=== PATIENT | female | born 1970 | race Caucasian/White ===

== ENCOUNTER 2017-11-17 08:44 | Inpatient (IN) | payer MEDICAID ==
[2017-11-17] MEDS: HYDROmorphONE 1 MG/ML SYG IV ×5 (09:49→21:41)
[2017-11-17] MEDS: ONDANSETRON 4 MG INJ IV ×2 (09:49→12:13)
[2017-11-17 10:00] LABS: ADD MAN DIFF? NO
[2017-11-17 10:04] LABS: BASOPHILS % 0.2 % (0.0-2.0); HEMATOCRIT 40.6 % (37.0-47.0); HEMOGLOBIN 13.9 g/dl (12.0-16.0); LYMPHOCYTES # 0.6 10^3/ul (0.8-2.9); LYMPHOCYTES % 9.6 % (15.0-51.0); MEAN CORPUSCULAR HEMOGLOBIN 30.2 pg (29.0-33.0); MEAN CORPUSCULAR HGB CONC 34.2 g/dl (32.0-37.0); MEAN CORPUSCULAR VOLUME 88.3 fl (82.0-101.0); MEAN PLATELET VOLUME 10.1 fl (7.4-10.4); MONOCYTE # 0.3 10^3/ul (0.3-0.9); MONOCYTES % 4.2 % (0.0-11.0); NEUTROPHIL # 5.3 10^3/ul (1.6-7.5); NEUTROPHILS % 85.2 % (39.0-77.0); PLATELET COUNT 172 10^3/UL (140-415); RED CELL DISTRIBUTION WIDTH 14.6 % (11.5-14.5)
[2017-11-17 10:04] LABS: WHITE BLOOD COUNT 6.3 10^3/ul (4.8-10.8)
[2017-11-17 11:02] LABS: ALANINE AMINOTRANSFERASE 91 IU/L (13-69); ALBUMIN 3.9 g/dl (3.3-4.9); ALBUMIN/GLOBULIN RATIO 1.44; ALKALINE PHOSPHATASE 77 IU/L (42-121); ANION GAP 13 (8-16); ASPARTATE AMINO TRANSFERASE 40 IU/L (15-46); BILIRUBIN,INDIRECT 0.5 mg/dl (0-1.1); BILIRUBIN,TOTAL 0.5 mg/dl (0.2-1.3); BLOOD UREA NITROGEN 18 mg/dl (7-20); CALCIUM 8.1 mg/dl (8.4-10.2); CARBON DIOXIDE 22 mmol/L (21-31); CHLORIDE 104 mmol/L (97-110); GLUCOSE 99 mg/dl (70-220); POTASSIUM 3.6 mmol/L (3.5-5.1); SODIUM 135 mmol/L (135-144); TOTAL PROTEIN 6.6 g/dl (6.1-8.1)
[2017-11-17] MEDS ORDERED: ACETAMINOPHEN 325 MG TAB PO (11:30)
[2017-11-17] MEDS: morphine (ER) 15 MG TAB PO ×2 (16:30→20:42)
[2017-11-17 18:40] LABS: ADD MAN DIFF? NO
[2017-11-17 18:44] LABS: WHITE BLOOD COUNT 6.1 10^3/ul (4.8-10.8)
[2017-11-17 18:44] LABS: BASOPHILS % 0.5 % (0.0-2.0); EOSINOPHILS % 0.3 % (0.0-7.0); HEMATOCRIT 41.2 % (37.0-47.0); HEMOGLOBIN 14.1 g/dl (12.0-16.0); LYMPHOCYTES # 0.7 10^3/ul (0.8-2.9); LYMPHOCYTES % 11.1 % (15.0-51.0); MEAN CORPUSCULAR HEMOGLOBIN 30.1 pg (29.0-33.0); MEAN CORPUSCULAR HGB CONC 34.2 g/dl (32.0-37.0); MEAN PLATELET VOLUME 9.7 fl (7.4-10.4); MONOCYTE # 0.3 10^3/ul (0.3-0.9); MONOCYTES % 4.1 % (0.0-11.0); NEUTROPHILS % 83.2 % (39.0-77.0); PLATELET COUNT 172 10^3/UL (140-415); RED BLOOD COUNT 4.68 10^6/ul (4.20-5.40); RED CELL DISTRIBUTION WIDTH 14.6 % (11.5-14.5)
[2017-11-17 18:54] LABS: INR 1.03; PROTIME 13.6 Sec (11.9-14.9); PT RATIO 1.1
[2017-11-17 18:55] LABS: PARTIAL THROMBOPLASTIN TIME 27.3 Sec (25.0-35.0)
[2017-11-17] MEDS: FAMOTIDINE 20 MG TAB PO (20:42)
[2017-11-18] MEDS: HYDROmorphONE 1 MG/ML SYG IV ×6 (00:37→18:01)
[2017-11-18 05:12] LABS: ADD MAN DIFF? NO
[2017-11-18 05:17] LABS: BASOPHILS % 0.3 % (0.0-2.0); EOSINOPHILS % 0.2 % (0.0-7.0); HEMATOCRIT 41.1 % (37.0-47.0); HEMOGLOBIN 14.1 g/dl (12.0-16.0); LYMPHOCYTES # 0.9 10^3/ul (0.8-2.9); LYMPHOCYTES % 15.6 % (15.0-51.0); MEAN CORPUSCULAR HEMOGLOBIN 30.3 pg (29.0-33.0); MEAN CORPUSCULAR HGB CONC 34.3 g/dl (32.0-37.0); MEAN CORPUSCULAR VOLUME 88.4 fl (82.0-101.0); MEAN PLATELET VOLUME 9.5 fl (7.4-10.4); MONOCYTE # 0.3 10^3/ul (0.3-0.9); MONOCYTES % 5.7 % (0.0-11.0); NEUTROPHIL # 4.6 10^3/ul (1.6-7.5); NEUTROPHILS % 77.7 % (39.0-77.0); PLATELET COUNT 184 10^3/UL (140-415); RED BLOOD COUNT 4.65 10^6/ul (4.20-5.40); RED CELL DISTRIBUTION WIDTH 14.6 % (11.5-14.5)
[2017-11-18 06:01] LABS: ANION GAP 11 (8-16); BLOOD UREA NITROGEN 12 mg/dl (7-20); CARBON DIOXIDE 25 mmol/L (21-31); CHLORIDE 101 mmol/L (97-110); CREATININE 0.47 mg/dl (0.44-1.00); GLUCOSE 93 mg/dl (70-220); MAGNESIUM 2.2 mg/dl (1.7-2.5); POTASSIUM 4.1 mmol/L (3.5-5.1); SODIUM 133 mmol/L (135-144)
[2017-11-18] MEDS: FAMOTIDINE 20 MG TAB PO ×2 (08:28→20:21)
[2017-11-18] MEDS: DOCUSATE SODIUM 250 MG CAP PO (08:28)
[2017-11-18] MEDS: morphine (ER) 15 MG TAB PO (08:29)
[2017-11-18] MEDS: ENOXAPARIN 40 MG/0.4 ML SYG SC (11:02)
[2017-11-18] MEDS: morphine (ER) 30 MG TAB PO (20:21)
[2017-11-19] MEDS: HYDROmorphONE 1 MG/ML SYG IV (01:14)
[2017-11-19] MEDS: HYDROmorphONE 2 MG/ML SYG IV ×3 (05:07→20:04)
[2017-11-19 05:11] LABS: ADD MAN DIFF? NO
[2017-11-19 05:18] LABS: BASOPHILS % 0.4 % (0.0-2.0); EOSINOPHILS # 0.1 10^3/ul (0.0-0.5); EOSINOPHILS % 1.1 % (0.0-7.0); HEMATOCRIT 41.2 % (37.0-47.0); HEMOGLOBIN 14.2 g/dl (12.0-16.0); LYMPHOCYTES # 0.8 10^3/ul (0.8-2.9); LYMPHOCYTES % 18.6 % (15.0-51.0); MEAN CORPUSCULAR HEMOGLOBIN 30.4 pg (29.0-33.0); MEAN CORPUSCULAR HGB CONC 34.5 g/dl (32.0-37.0); MEAN CORPUSCULAR VOLUME 88.2 fl (82.0-101.0); MEAN PLATELET VOLUME 9.7 fl (7.4-10.4); MONOCYTE # 0.3 10^3/ul (0.3-0.9); MONOCYTES % 5.5 % (0.0-11.0); NEUTROPHIL # 3.3 10^3/ul (1.6-7.5); NEUTROPHILS % 73.5 % (39.0-77.0); PLATELET COUNT 172 10^3/UL (140-415); RED BLOOD COUNT 4.67 10^6/ul (4.20-5.40); RED CELL DISTRIBUTION WIDTH 14.6 % (11.5-14.5)
[2017-11-19 05:18] LABS: WHITE BLOOD COUNT 4.5 10^3/ul (4.8-10.8)
[2017-11-19 05:41] LABS: ANION GAP 10 (8-16); BLOOD UREA NITROGEN 13 mg/dl (7-20); CALCIUM 8.9 mg/dl (8.4-10.2); CARBON DIOXIDE 28 mmol/L (21-31); CHLORIDE 99 mmol/L (97-110); CREATININE 0.48 mg/dl (0.44-1.00); GLUCOSE 99 mg/dl (70-220); POTASSIUM 3.8 mmol/L (3.5-5.1); SODIUM 133 mmol/L (135-144)
[2017-11-19] MEDS: ENOXAPARIN 40 MG/0.4 ML SYG SC (08:01)
[2017-11-19] MEDS: FAMOTIDINE 20 MG TAB PO ×2 (08:41→20:05)
[2017-11-19] MEDS: DOCUSATE SODIUM 250 MG CAP PO (08:41)
[2017-11-19] MEDS: morphine (ER) 30 MG TAB PO ×2 (08:41→20:04)
[2017-11-19] MEDS: HYDROCORTISONE IVPB (09:30)
[2017-11-19] MEDS: METHOTREXATE IVPB (09:30)
[2017-11-19] MEDS: SOD CHLORIDE 0.9% IVPB (09:30)
[2017-11-19] MEDS: ONDANSETRON 4 MG INJ IV (12:06)
[2017-11-20] MEDS: HYDROmorphONE 2 MG/ML SYG IV ×2 (02:37→12:22)
[2017-11-20 05:29] LABS: ADD MAN DIFF? NO
[2017-11-20 05:37] LABS: WHITE BLOOD COUNT 6.1 10^3/ul (4.8-10.8)
[2017-11-20 05:37] LABS: BASOPHILS % 0.5 % (0.0-2.0); EOSINOPHILS % 0.5 % (0.0-7.0); HEMATOCRIT 44.9 % (37.0-47.0); HEMOGLOBIN 15.1 g/dl (12.0-16.0); LYMPHOCYTES # 0.6 10^3/ul (0.8-2.9); LYMPHOCYTES % 10.4 % (15.0-51.0); MEAN CORPUSCULAR HEMOGLOBIN 29.8 pg (29.0-33.0); MEAN CORPUSCULAR HGB CONC 33.6 g/dl (32.0-37.0); MEAN CORPUSCULAR VOLUME 88.7 fl (82.0-101.0); MEAN PLATELET VOLUME 9.7 fl (7.4-10.4); MONOCYTE # 0.4 10^3/ul (0.3-0.9); MONOCYTES % 5.9 % (0.0-11.0); NEUTROPHILS % 81.9 % (39.0-77.0); PLATELET COUNT 211 10^3/UL (140-415); RED BLOOD COUNT 5.06 10^6/ul (4.20-5.40); RED CELL DISTRIBUTION WIDTH 14.4 % (11.5-14.5)
[2017-11-20 05:53] LABS: ANION GAP 14 (8-16); BLOOD UREA NITROGEN 14 mg/dl (7-20); CALCIUM 9.1 mg/dl (8.4-10.2); CARBON DIOXIDE 27 mmol/L (21-31); CHLORIDE 96 mmol/L (97-110); CREATININE 0.42 mg/dl (0.44-1.00); GLUCOSE 109 mg/dl (70-220); SODIUM 133 mmol/L (135-144)
[2017-11-20] MEDS: FAMOTIDINE 20 MG TAB PO (09:20)
[2017-11-20] MEDS: DOCUSATE SODIUM 250 MG CAP PO (09:20)
[2017-11-20] MEDS: morphine (ER) 30 MG TAB PO (09:21)
[2017-11-20] MEDS: ENOXAPARIN 40 MG/0.4 ML SYG SC (09:23)
== END 2017-11-20 17:20 | disposition home or self-care (01) | DRG 55 ==
LOC: MS1 11-18 16:10 → E/R 08:44 → MS1 11:22
PROC: 3E0R305 Introduction of Other Antineoplastic into Spinal Canal, Percutaneous Approach (ICD-10-PCS; principal; 2017-11-19)
DX: C79.49 Secondary malignant neoplasm of other parts of nervous system (principal); C79.51 Secondary malignant neoplasm of bone; C50.912 Malignant neoplasm of unspecified site of left female breast; G40.89 Other seizures; Z17.0 Estrogen receptor positive status [ER+]; H35.52 Pigmentary retinal dystrophy; R51 Headache
CPT/HCPCS: 70450; 80048; 80053; 83735; 85025; 85610; 85730; 96374; 96375; 96376; 99285-25

== ENCOUNTER 2017-11-29 22:45 | Inpatient (IN) | payer MEDICAID ==
[2017-11-30] MEDS: DIPHENHYDRAMINE 50 MG INJ IV (03:58)
[2017-11-30] MEDS: HYDROmorphONE 1 MG/ML SYG IV ×2 (03:58→06:18)
[2017-11-30] MEDS: PROCHLORPERAZINE 10 MG INJ IV (03:58)
[2017-11-30 04:10] LABS: ADD MAN DIFF? NO
[2017-11-30 04:14] LABS: ABNORMAL IP MESSAGE 1; BASOPHILS % 0.5 % (0.0-2.0); EOSINOPHILS # 0.4 10^3/ul (0.0-0.5); EOSINOPHILS % 8.9 % (0.0-7.0); HEMATOCRIT 40.8 % (37.0-47.0); HEMOGLOBIN 14.5 g/dl (12.0-16.0); LYMPHOCYTES # 0.5 10^3/ul (0.8-2.9); MEAN CORPUSCULAR HEMOGLOBIN 30.6 pg (29.0-33.0); MEAN CORPUSCULAR HGB CONC 35.5 g/dl (32.0-37.0); MEAN CORPUSCULAR VOLUME 86.1 fl (82.0-101.0); MEAN PLATELET VOLUME 8.9 fl (7.4-10.4); MONOCYTE # 0.3 10^3/ul (0.3-0.9); MONOCYTES % 6.7 % (0.0-11.0); NEUTROPHIL # 2.9 10^3/ul (1.6-7.5); NEUTROPHILS % 69.7 % (39.0-77.0); PLATELET COUNT 246 10^3/UL (140-415); RED BLOOD COUNT 4.74 10^6/ul (4.20-5.40); RED CELL DISTRIBUTION WIDTH 14.7 % (11.5-14.5)
[2017-11-30 04:14] LABS: WHITE BLOOD COUNT 4.2 10^3/ul (4.8-10.8)
[2017-11-30 04:25] LABS: POSITIVE DIFF @See below
[2017-11-30 04:33] LABS: ANION GAP 16 (8-16); BLOOD UREA NITROGEN 8 mg/dl (7-20); CALCIUM 9.3 mg/dl (8.4-10.2); CARBON DIOXIDE 25 mmol/L (21-31); CHLORIDE 97 mmol/L (97-110); CREATININE 0.42 mg/dl (0.44-1.00); GLUCOSE 115 mg/dl (70-220); POTASSIUM 3.8 mmol/L (3.5-5.1); SODIUM 134 mmol/L (135-144)
[2017-11-30] MEDS ORDERED: ACETAMINOPHEN 325 MG TAB PO ×2 (05:30→07:30)
[2017-11-30] MEDS ORDERED: ONDANSETRON 4 MG INJ IV (05:30)
[2017-11-30] MEDS ORDERED: LORAZEPAM 2 MG INJ (06:15)
[2017-11-30] MEDS: LORAZEPAM 2 MG INJ IV ×2 (06:22→20:21)
[2017-11-30] MEDS ORDERED: ALBUTEROL/IPRATROPIUM (NEB) 3 ML AMP HHN (07:30)
[2017-11-30] MEDS: SOD CHLORIDE 0.45% 1,000 ML IV ×2 (10:14→15:02)
[2017-11-30] MEDS: DOCUSATE SODIUM 250 MG CAP PO (10:36)
[2017-11-30] MEDS: DEXAMETHASONE 4 MG/ML 1 ML INJ IV ×3 (10:36→20:15)
[2017-11-30] MEDS: POLYETHYLENE GLYCOL 17 GM PACKET PO (10:37)
[2017-11-30] MEDS: morphine (ER) 30 MG TAB PO ×2 (10:38→20:23)
[2017-11-30] MEDS: FOSPHENYTOIN (PE) 1,000 MG in SOD CHLORIDE 0.9% 80 ML IVPB (12:17)
[2017-11-30] MEDS: SOD CHLORIDE 0.9% 1,000 ML IV (12:46)
[2017-11-30 13:46] LABS: LACTIC ACID 1.4 mmol/L (0.5-2.0)
[2017-11-30] MEDS: NACL 0.9% 3 ML SYG IV (20:18)
[2017-12-01] MEDS: HYDROmorphONE 0.5 MG/0.5 ML SYG IV ×3 (00:34→09:47)
[2017-12-01] MEDS: FOSPHENYTOIN (PE) 100 MG in SOD CHLORIDE 0.9% 50 ML IVPB ×3 (00:35→15:52)
[2017-12-01] MEDS: DEXAMETHASONE 4 MG/ML 1 ML INJ IV ×4 (02:36→18:30)
[2017-12-01 05:56] LABS: ADD MAN DIFF? NO
[2017-12-01 06:01] LABS: WHITE BLOOD COUNT 6.9 10^3/ul (4.8-10.8)
[2017-12-01 06:01] LABS: ABNORMAL IP MESSAGE 1; BASOPHILS % 0.1 % (0.0-2.0); HEMATOCRIT 39.9 % (37.0-47.0); HEMOGLOBIN 14.3 g/dl (12.0-16.0); LYMPHOCYTES # 0.5 10^3/ul (0.8-2.9); LYMPHOCYTES % 6.6 % (15.0-51.0); MEAN CORPUSCULAR HGB CONC 35.8 g/dl (32.0-37.0); MEAN CORPUSCULAR VOLUME 86.4 fl (82.0-101.0); MEAN PLATELET VOLUME 8.5 fl (7.4-10.4); MONOCYTE # 0.5 10^3/ul (0.3-0.9); MONOCYTES % 6.9 % (0.0-11.0); NEUTROPHIL # 5.9 10^3/ul (1.6-7.5); NEUTROPHILS % 85.4 % (39.0-77.0); PLATELET COUNT 257 10^3/UL (140-415); RED BLOOD COUNT 4.62 10^6/ul (4.20-5.40); RED CELL DISTRIBUTION WIDTH 14.5 % (11.5-14.5)
[2017-12-01 06:44] LABS: ALANINE AMINOTRANSFERASE 49 IU/L (13-69); ALBUMIN 4.2 g/dl (3.3-4.9); ALKALINE PHOSPHATASE 83 IU/L (42-121); ANION GAP 16 (8-16); ASPARTATE AMINO TRANSFERASE 31 IU/L (15-46); BILIRUBIN,INDIRECT 0.5 mg/dl (0-1.1); BILIRUBIN,TOTAL 0.5 mg/dl (0.2-1.3); BLOOD UREA NITROGEN 8 mg/dl (7-20); CALCIUM 8.6 mg/dl (8.4-10.2); CARBON DIOXIDE 21 mmol/L (21-31); CHLORIDE 98 mmol/L (97-110); CREATININE 0.37 mg/dl (0.44-1.00); GLUCOSE 115 mg/dl (70-220); MAGNESIUM 2.2 mg/dl (1.7-2.5); PHOSPHORUS 2.8 mg/dl (2.5-4.9); POTASSIUM 3.6 mmol/L (3.5-5.1); SODIUM 131 mmol/L (135-144); TOTAL PROTEIN 7.2 g/dl (6.1-8.1)
[2017-12-01 07:08] LABS: POSITIVE DIFF @See below
[2017-12-01] MEDS: POLYETHYLENE GLYCOL 17 GM PACKET PO (09:16)
[2017-12-01] MEDS: morphine (ER) 30 MG TAB PO ×2 (09:16→13:04)
[2017-12-01] MEDS: DOCUSATE SODIUM 250 MG CAP PO (09:16)
[2017-12-01] MEDS: SOD CHLORIDE 0.45% 1,000 ML IV (11:51)
[2017-12-01] MEDS ORDERED: morphine (ER) 15 MG TAB PO (12:30)
[2017-12-01] MEDS: morphine (ER) 15 MG TAB PO (20:29)
[2017-12-01] MEDS ORDERED: morphine (ER) 30 MG TAB PO (21:00)
[2017-12-02] MEDS: FOSPHENYTOIN (PE) 100 MG in SOD CHLORIDE 0.9% 50 ML IVPB ×3 (00:17→16:54)
[2017-12-02] MEDS: DEXAMETHASONE 4 MG/ML 1 ML INJ IV ×4 (01:18→20:25)
[2017-12-02 06:11] LABS: ADD MAN DIFF? NO
[2017-12-02 06:18] LABS: ABNORMAL IP MESSAGE 1; BASOPHILS % 0.2 % (0.0-2.0); HEMATOCRIT 43.5 % (37.0-47.0); HEMOGLOBIN 15.2 g/dl (12.0-16.0); LYMPHOCYTES # 0.6 10^3/ul (0.8-2.9); LYMPHOCYTES % 9.7 % (15.0-51.0); MEAN CORPUSCULAR HEMOGLOBIN 30.3 pg (29.0-33.0); MEAN CORPUSCULAR HGB CONC 34.9 g/dl (32.0-37.0); MEAN CORPUSCULAR VOLUME 86.8 fl (82.0-101.0); MEAN PLATELET VOLUME 8.8 fl (7.4-10.4); MONOCYTE # 0.5 10^3/ul (0.3-0.9); NEUTROPHIL # 4.7 10^3/ul (1.6-7.5); NEUTROPHILS % 80.1 % (39.0-77.0); PLATELET COUNT 322 10^3/UL (140-415); RED BLOOD COUNT 5.01 10^6/ul (4.20-5.40); RED CELL DISTRIBUTION WIDTH 14.6 % (11.5-14.5)
[2017-12-02 06:18] LABS: WHITE BLOOD COUNT 5.8 10^3/ul (4.8-10.8)
[2017-12-02 06:23] LABS: POSITIVE DIFF @See below
[2017-12-02] MEDS: SOD CHLORIDE 0.45% 1,000 ML IV ×2 (06:44→21:00)
[2017-12-02 06:52] LABS: ALBUMIN 4.2 g/dl (3.3-4.9); ANION GAP 14 (8-16); BLOOD UREA NITROGEN 9 mg/dl (7-20); CALCIUM 8.8 mg/dl (8.4-10.2); CARBON DIOXIDE 24 mmol/L (21-31); CHLORIDE 101 mmol/L (97-110); CREATININE 0.45 mg/dl (0.44-1.00); GLUCOSE 81 mg/dl (70-220); MAGNESIUM 2.4 mg/dl (1.7-2.5); PHOSPHORUS 3.3 mg/dl (2.5-4.9); POTASSIUM 3.7 mmol/L (3.5-5.1); SODIUM 135 mmol/L (135-144)
[2017-12-02] MEDS: DOCUSATE SODIUM 250 MG CAP PO (09:54)
[2017-12-02] MEDS: POLYETHYLENE GLYCOL 17 GM PACKET PO (09:54)
[2017-12-02] MEDS: morphine (ER) 15 MG TAB PO ×2 (09:55→20:26)
[2017-12-02] MEDS: COLLAGENASE 30 GM TUBE TOP (12:30)
[2017-12-02] MEDS: LEVETIRACETAM 1000 MG (PMX) 100 ML IVPB ×2 (13:05→21:30)
[2017-12-03] MEDS: FOSPHENYTOIN (PE) 100 MG in SOD CHLORIDE 0.9% 50 ML IVPB ×2 (00:20→08:29)
[2017-12-03] MEDS: COLLAGENASE 30 GM TUBE TOP ×3 (00:24→08:37)
[2017-12-03] MEDS: DEXAMETHASONE 4 MG/ML 1 ML INJ IV ×4 (01:35→19:49)
[2017-12-03] MEDS: SOD CHLORIDE 0.45% 1,000 ML IV ×3 (03:42→23:04)
[2017-12-03 06:11] LABS: ADD MAN DIFF? NO
[2017-12-03 06:14] LABS: WHITE BLOOD COUNT 5.1 10^3/ul (4.8-10.8)
[2017-12-03 06:14] LABS: ABNORMAL IP MESSAGE 1; BASOPHILS % 0.2 % (0.0-2.0); HEMATOCRIT 42.3 % (37.0-47.0); HEMOGLOBIN 14.6 g/dl (12.0-16.0); LYMPHOCYTES # 0.5 10^3/ul (0.8-2.9); LYMPHOCYTES % 10.2 % (15.0-51.0); MEAN CORPUSCULAR HEMOGLOBIN 30.5 pg (29.0-33.0); MEAN CORPUSCULAR HGB CONC 34.5 g/dl (32.0-37.0); MEAN CORPUSCULAR VOLUME 88.3 fl (82.0-101.0); MEAN PLATELET VOLUME 8.4 fl (7.4-10.4); MONOCYTE # 0.5 10^3/ul (0.3-0.9); MONOCYTES % 9.3 % (0.0-11.0); NEUTROPHILS % 78.9 % (39.0-77.0); PLATELET COUNT 301 10^3/UL (140-415); RED BLOOD COUNT 4.79 10^6/ul (4.20-5.40); RED CELL DISTRIBUTION WIDTH 14.8 % (11.5-14.5)
[2017-12-03 06:26] LABS: POSITIVE DIFF @See below
[2017-12-03 06:36] LABS: ALBUMIN 3.9 g/dl (3.3-4.9); BLOOD UREA NITROGEN 11 mg/dl (7-20); CALCIUM 8.4 mg/dl (8.4-10.2); CARBON DIOXIDE 27 mmol/L (21-31); CHLORIDE 102 mmol/L (97-110); CREATININE 0.45 mg/dl (0.44-1.00); GLUCOSE 99 mg/dl (70-220); MAGNESIUM 2.3 mg/dl (1.7-2.5); PHOSPHORUS 3.1 mg/dl (2.5-4.9); SODIUM 136 mmol/L (135-144)
[2017-12-03 06:48] LABS: PHENYTOIN (DILANTIN) 14.9 ug/ml (10.0-20.0)
[2017-12-03 07:41] LABS: ANION GAP 11 (8-16)
[2017-12-03 07:43] LABS: POTASSIUM 3.7 mmol/L (3.5-5.1)
[2017-12-03] MEDS: DOCUSATE SODIUM 250 MG CAP PO (08:29)
[2017-12-03] MEDS: POLYETHYLENE GLYCOL 17 GM PACKET PO (08:29)
[2017-12-03] MEDS: morphine (ER) 15 MG TAB PO ×2 (08:33→20:16)
[2017-12-03] MEDS: LEVETIRACETAM 1000 MG (PMX) 100 ML IVPB (09:21)
[2017-12-03] MEDS: PHENYTOIN 100 MG CAP PO ×2 (13:04→20:16)
[2017-12-03] MEDS: HYDROCODONE/APAP (10/325) TAB PO (14:53)
[2017-12-03 15:31] LABS: PROTIME 13.3 Sec (11.9-14.9)
[2017-12-03 15:32] LABS: PARTIAL THROMBOPLASTIN TIME 27.6 Sec (25.0-35.0)
[2017-12-03] MEDS: ACET/BUTAL/CAFF TAB PO (18:04)
[2017-12-03] MEDS: LEVETIRACETAM 500 MG TAB PO (20:17)
[2017-12-03] MEDS: KETOROLAC 30 MG INJ IV (21:06)
[2017-12-03] MEDS: ONDANSETRON 4 MG INJ IV (21:58)
[2017-12-04] MEDS: DEXAMETHASONE 4 MG/ML 1 ML INJ IV ×4 (01:31→21:09)
[2017-12-04 06:25] LABS: ADD MAN DIFF? NO
[2017-12-04 06:34] LABS: ABNORMAL IP MESSAGE 1; BASOPHILS % 0.1 % (0.0-2.0); HEMATOCRIT 45.1 % (37.0-47.0); HEMOGLOBIN 15.9 g/dl (12.0-16.0); LYMPHOCYTES # 0.6 10^3/ul (0.8-2.9); LYMPHOCYTES % 6.3 % (15.0-51.0); MEAN CORPUSCULAR HEMOGLOBIN 30.3 pg (29.0-33.0); MEAN CORPUSCULAR HGB CONC 35.3 g/dl (32.0-37.0); MEAN CORPUSCULAR VOLUME 85.9 fl (82.0-101.0); MEAN PLATELET VOLUME 8.5 fl (7.4-10.4); MONOCYTE # 0.7 10^3/ul (0.3-0.9); MONOCYTES % 7.5 % (0.0-11.0); NEUTROPHILS % 84.9 % (39.0-77.0); PLATELET COUNT 343 10^3/UL (140-415); RED BLOOD COUNT 5.25 10^6/ul (4.20-5.40); RED CELL DISTRIBUTION WIDTH 14.6 % (11.5-14.5)
[2017-12-04 06:34] LABS: WHITE BLOOD COUNT 9.4 10^3/ul (4.8-10.8)
[2017-12-04 06:48] LABS: POSITIVE DIFF @See below
[2017-12-04 06:55] LABS: ALBUMIN 4.3 g/dl (3.3-4.9); ANION GAP 14 (8-16); BLOOD UREA NITROGEN 6 mg/dl (7-20); CALCIUM 8.8 mg/dl (8.4-10.2); CARBON DIOXIDE 26 mmol/L (21-31); CHLORIDE 90 mmol/L (97-110); CREATININE 0.36 mg/dl (0.44-1.00); GLUCOSE 116 mg/dl (70-220); MAGNESIUM 2.1 mg/dl (1.7-2.5); PHOSPHORUS 3.2 mg/dl (2.5-4.9); POTASSIUM 3.7 mmol/L (3.5-5.1); SODIUM 126 mmol/L (135-144)
[2017-12-04] MEDS: LEVETIRACETAM 500 MG TAB PO ×2 (08:54→21:53)
[2017-12-04] MEDS: PHENYTOIN 100 MG CAP PO ×3 (08:58→21:53)
[2017-12-04] MEDS: morphine (ER) 15 MG TAB PO ×2 (08:58→21:53)
[2017-12-04] MEDS: POLYETHYLENE GLYCOL 17 GM PACKET PO (08:59)
[2017-12-04] MEDS: DOCUSATE SODIUM 250 MG CAP PO (08:59)
[2017-12-04] MEDS ORDERED: SOD CHLORIDE 0.9% IVPB (11:00)
[2017-12-04] MEDS ORDERED: HYDROCORTISONE IVPB (11:00)
[2017-12-04] MEDS ORDERED: METHOTREXATE IVPB (11:00)
[2017-12-04] MEDS: SOD CHLORIDE 0.45% 1,000 ML IV ×2 (13:00→21:07)
[2017-12-04] MEDS: HYDROCODONE/APAP (10/325) TAB PO (13:55)
[2017-12-04] MEDS: HYDROmorphONE 0.5 MG/0.5 ML SYG IV (15:55)
[2017-12-04] MEDS: COLLAGENASE 30 GM TUBE TOP (18:30)
[2017-12-05] MEDS: DEXAMETHASONE 4 MG/ML 1 ML INJ IV ×4 (02:12→20:28)
[2017-12-05] MEDS: HYDROmorphONE 0.5 MG/0.5 ML SYG IV (04:59)
[2017-12-05 06:15] LABS: ALBUMIN 4.4 g/dl (3.3-4.9); ANION GAP 17 (8-16); BLOOD UREA NITROGEN 10 mg/dl (7-20); CALCIUM 8.8 mg/dl (8.4-10.2); CARBON DIOXIDE 23 mmol/L (21-31); CHLORIDE 88 mmol/L (97-110); CREATININE 0.35 mg/dl (0.44-1.00); GLUCOSE 124 mg/dl (70-220); MAGNESIUM 2.2 mg/dl (1.7-2.5); PHOSPHORUS 2.9 mg/dl (2.5-4.9); POTASSIUM 3.8 mmol/L (3.5-5.1); SODIUM 124 mmol/L (135-144)
[2017-12-05] MEDS: KETOROLAC 30 MG INJ IV (06:45)
[2017-12-05] MEDS: DOCUSATE SODIUM 250 MG CAP PO (09:00)
[2017-12-05] MEDS: POLYETHYLENE GLYCOL 17 GM PACKET PO (09:00)
[2017-12-05] MEDS: SOD CHLORIDE 0.45% 1,000 ML IV ×2 (09:00→17:38)
[2017-12-05] MEDS: morphine (ER) 15 MG TAB PO (09:05)
[2017-12-05] MEDS: PHENYTOIN 100 MG CAP PO ×2 (09:07→13:00)
[2017-12-05] MEDS: LEVETIRACETAM 500 MG TAB PO (09:07)
[2017-12-05] MEDS: NALOXONE (0.4 MG/ML) INJ IV (14:30)
[2017-12-05] MEDS: COLLAGENASE 30 GM TUBE TOP (15:00)
[2017-12-05] MEDS: LORAZEPAM 2 MG INJ IV (15:44)
[2017-12-05] MEDS: LEVETIRACETAM 1000 MG (PMX) 100 ML IVPB (20:28)
[2017-12-05] MEDS ORDERED: morphine (ER) 15 MG TAB PO (21:00)
[2017-12-05] MEDS: PHENYTOIN 100 MG INJ IV (22:24)
[2017-12-06] MEDS: DEXAMETHASONE 4 MG/ML 1 ML INJ IV ×4 (01:40→19:42)
[2017-12-06] MEDS: morphine 2 MG INJ IV ×3 (01:41→22:14)
[2017-12-06] MEDS: PHENYTOIN 100 MG INJ IV ×3 (05:35→21:49)
[2017-12-06 07:24] LABS: ALBUMIN 4.1 g/dl (3.3-4.9); ANION GAP 12 (8-16); BLOOD UREA NITROGEN 10 mg/dl (7-20); CALCIUM 8.3 mg/dl (8.4-10.2); CARBON DIOXIDE 25 mmol/L (21-31); CHLORIDE 88 mmol/L (97-110); GLUCOSE 121 mg/dl (70-220); MAGNESIUM 2.1 mg/dl (1.7-2.5); PHOSPHORUS 2.5 mg/dl (2.5-4.9); POTASSIUM 4.1 mmol/L (3.5-5.1); SODIUM 121 mmol/L (135-144)
[2017-12-06] MEDS: LEVETIRACETAM 1000 MG (PMX) 100 ML IVPB ×2 (08:24→20:47)
[2017-12-06] MEDS: DOCUSATE SODIUM 250 MG CAP PO (08:25)
[2017-12-06] MEDS: POLYETHYLENE GLYCOL 17 GM PACKET PO (08:25)
[2017-12-06] MEDS: COLLAGENASE 30 GM TUBE TOP (09:46)
[2017-12-06] MEDS: SOD CHLORIDE 0.9% 1,000 ML IV ×2 (11:02→23:11)
[2017-12-06] MEDS: ACET/BUTAL/CAFF TAB PO (12:22)
[2017-12-06 15:26] LABS: POTASSIUM,URINE RANDOM 22.2 mmol/L (25-125)
[2017-12-06 15:26] LABS: SODIUM,URINE RANDOM 112 mmol/L (30-90)
[2017-12-06 19:23] LABS: OSMOLALITY,URINE 488 mOsm/kg (250-1200)
[2017-12-06] MEDS: SOD CHLORIDE 0.9% 500 ML IV (22:11)
[2017-12-07] MEDS: DEXAMETHASONE 4 MG/ML 1 ML INJ IV ×4 (01:19→19:14)
[2017-12-07] MEDS: LORAZEPAM 2 MG INJ IV ×4 (02:00→20:14)
[2017-12-07] MEDS: SOD CHLORIDE 0.9% 1,000 ML IV ×2 (02:58→11:30)
[2017-12-07] MEDS: PHENYTOIN 100 MG INJ IV ×3 (05:53→21:57)
[2017-12-07] MEDS: morphine 2 MG INJ IV ×2 (05:54→16:08)
[2017-12-07 06:03] LABS: ANION GAP 13 (8-16)
[2017-12-07 06:12] LABS: ALBUMIN 4.1 g/dl (3.3-4.9); BLOOD UREA NITROGEN 7 mg/dl (7-20); CALCIUM 8.9 mg/dl (8.4-10.2); CARBON DIOXIDE 25 mmol/L (21-31); CHLORIDE 94 mmol/L (97-110); CREATININE 0.33 mg/dl (0.44-1.00); GLUCOSE 115 mg/dl (70-220); MAGNESIUM 2.1 mg/dl (1.7-2.5); PHOSPHORUS 2.1 mg/dl (2.5-4.9); POTASSIUM 3.9 mmol/L (3.5-5.1); SODIUM 128 mmol/L (135-144)
[2017-12-07] MEDS: DOCUSATE SODIUM 250 MG CAP PO (09:00)
[2017-12-07] MEDS: LEVETIRACETAM 1000 MG (PMX) 100 ML IVPB ×2 (09:16→20:17)
[2017-12-07] MEDS: COLLAGENASE 30 GM TUBE TOP (09:18)
[2017-12-07] MEDS: POLYETHYLENE GLYCOL 17 GM PACKET PO (09:18)
[2017-12-08] MEDS: DEXAMETHASONE 4 MG/ML 1 ML INJ IV ×4 (01:44→21:11)
[2017-12-08] MEDS: SOD CHLORIDE 0.9% 1,000 ML IV ×2 (03:34→21:55)
[2017-12-08] MEDS: PHENYTOIN 100 MG INJ IV ×3 (05:29→21:56)
[2017-12-08 06:39] LABS: ALBUMIN 4.2 g/dl (3.3-4.9); ANION GAP 12 (8-16); BLOOD UREA NITROGEN 7 mg/dl (7-20); CALCIUM 8.8 mg/dl (8.4-10.2); CARBON DIOXIDE 25 mmol/L (21-31); CHLORIDE 96 mmol/L (97-110); CREATININE 0.32 mg/dl (0.44-1.00); GLUCOSE 107 mg/dl (70-220); MAGNESIUM 2.1 mg/dl (1.7-2.5); PHOSPHORUS 2.4 mg/dl (2.5-4.9); POTASSIUM 3.4 mmol/L (3.5-5.1); SODIUM 130 mmol/L (135-144)
[2017-12-08] MEDS: LEVETIRACETAM 1000 MG (PMX) 100 ML IVPB ×2 (08:24→21:12)
[2017-12-08] MEDS: COLLAGENASE 30 GM TUBE TOP (13:32)
[2017-12-08] MEDS: POTASSIUM CHLORIDE 100 ML IVPB (13:32)
[2017-12-08] MEDS: DOCUSATE SODIUM 250 MG CAP PO (15:18)
[2017-12-08] MEDS: POLYETHYLENE GLYCOL 17 GM PACKET PO (15:18)
[2017-12-08] MEDS: METOPROLOL 25 MG TAB PO ×2 (15:19→20:32)
[2017-12-08] MEDS: LORAZEPAM 2 MG INJ IV (19:36)
[2017-12-09] MEDS: DEXAMETHASONE 4 MG/ML 1 ML INJ IV ×4 (01:53→20:13)
[2017-12-09] MEDS: SOD CHLORIDE 0.9% 1,000 ML IV (04:13)
[2017-12-09] MEDS: PHENYTOIN 100 MG INJ IV ×3 (05:46→21:51)
[2017-12-09 06:03] LABS: ADD MAN DIFF? NO
[2017-12-09 06:13] LABS: ABNORMAL IP MESSAGE 1; BASOPHILS % 0.2 % (0.0-2.0); HEMATOCRIT 42.7 % (37.0-47.0); HEMOGLOBIN 15.2 g/dl (12.0-16.0); LYMPHOCYTES # 0.6 10^3/ul (0.8-2.9); LYMPHOCYTES % 3.9 % (15.0-51.0); MEAN CORPUSCULAR HEMOGLOBIN 30.7 pg (29.0-33.0); MEAN CORPUSCULAR HGB CONC 35.6 g/dl (32.0-37.0); MEAN CORPUSCULAR VOLUME 86.3 fl (82.0-101.0); MONOCYTE # 0.9 10^3/ul (0.3-0.9); MONOCYTES % 6.3 % (0.0-11.0); NEUTROPHIL # 12.4 10^3/ul (1.6-7.5); NEUTROPHILS % 88.5 % (39.0-77.0); PLATELET COUNT 323 10^3/UL (140-415); RED BLOOD COUNT 4.95 10^6/ul (4.20-5.40); RED CELL DISTRIBUTION WIDTH 14.8 % (11.5-14.5)
[2017-12-09 06:28] LABS: POSITIVE DIFF @See below
[2017-12-09 06:39] LABS: ALBUMIN 3.8 g/dl (3.3-4.9); BLOOD UREA NITROGEN 8 mg/dl (7-20); CALCIUM 8.8 mg/dl (8.4-10.2); CARBON DIOXIDE 24 mmol/L (21-31); CHLORIDE 99 mmol/L (97-110); GLUCOSE 113 mg/dl (70-220); MAGNESIUM 2.1 mg/dl (1.7-2.5); PHOSPHORUS 2.9 mg/dl (2.5-4.9); SODIUM 130 mmol/L (135-144)
[2017-12-09 07:37] LABS: ANION GAP 11 (8-16)
[2017-12-09 07:40] LABS: POTASSIUM 3.7 mmol/L (3.5-5.1)
[2017-12-09] MEDS: LEVETIRACETAM 1000 MG (PMX) 100 ML IVPB ×2 (08:41→20:13)
[2017-12-09] MEDS: METOPROLOL 25 MG TAB PO ×2 (08:42→20:09)
[2017-12-09] MEDS: COLLAGENASE 30 GM TUBE TOP (08:42)
[2017-12-09] MEDS: POLYETHYLENE GLYCOL 17 GM PACKET PO (09:00)
[2017-12-09] MEDS: DOCUSATE SODIUM 250 MG CAP PO (09:00)
[2017-12-09] MEDS ORDERED: morphine 2 MG INJ IV (11:00)
[2017-12-09] MEDS ORDERED: METOPROLOL 5 MG INJ IV (12:00)
[2017-12-09] MEDS: DEXTROSE 5%-0.45% NACL 1,000 ML IV ×2 (12:00→21:54)
[2017-12-09] MEDS: LORAZEPAM 2 MG INJ IV (13:54)
[2017-12-10] MEDS: LORAZEPAM 2 MG INJ IV
[2017-12-10] MEDS: DEXTROSE 5%-0.45% NACL 1,000 ML IV ×2 (00:03→08:00)
[2017-12-10] MEDS: DEXAMETHASONE 4 MG/ML 1 ML INJ IV ×2 (01:38→07:30)
[2017-12-10] MEDS: PHENYTOIN 100 MG INJ IV (05:17)
== END 2017-12-10 10:33 | disposition expired | DRG 597 ==
LOC: MS2 12-01 19:45 → FTE 22:45 → PP2 11-30 05:26 → ICU 11-30 11:12
DX: C50.919 Malignant neoplasm of unspecified site of unspecified female breast (principal); G93.40 Encephalopathy, unspecified; J96.00 Acute respiratory failure, unspecified whether with hypoxia or hypercapnia; E44.0 Moderate protein-calorie malnutrition; E87.1 Hypo-osmolality and hyponatremia; C79.31 Secondary malignant neoplasm of brain; G40.909 Epilepsy, unspecified, not intractable, without status epilepticus; H35.52 Pigmentary retinal dystrophy; Z68.25 Body mass index [BMI] 25.0-25.9, adult; I46.9 Cardiac arrest, cause unspecified; R00.1 Bradycardia, unspecified; G89.3 Neoplasm related pain (acute) (chronic); Z17.0 Estrogen receptor positive status [ER+]; Z66 Do not resuscitate; R11.2 Nausea with vomiting, unspecified
CPT/HCPCS: 36415; 70450; 70551; 80048; 80053; 80069; 80185; 83605; 83735; 83935; 84100; 84133; 84300; 85025; 85610; 85730; 87081; 93005; 95819; 96374; 96375; 96376; 97110; 97116; 97163; 99217; 99285-25; G0378